=== PATIENT | male | born 1960 | race African-American/Black ===

== ENCOUNTER 2020-10-28 08:53 | Emergency (ER) | payer SELFPAY ==
[~2020-10-28] VITALS: Ht 193 cm; Wt 100.0 kg
[2020-10-28 09:00] VITALS: BP 169/89
--- NOTE | 2020-10-28 10:01 | ED.ADGEN ---
Past Medical History Past Medical History: No Pertinent History Past Surgical History: No Surgical History Smoking Status: Current Every Day Smoker Additional Information: "I VAPE." Alcohol Use: None Drug Use: None General Adult EDM: Chief Complaint: KNEE INJURY HPI: HPI: Patient is a 60 year old AA male who presents emergency department with complaints of left lateral knee pain for the last 2 weeks. Patient denies any recent injury or fall. He states that he got out of bed 2 weeks ago and noticed that his knee was hurting. Since then he has developed pain that shoots up to his left hip. Patient denies any erythema or warmth of his left knee, he states that there has been some swelling. He denies any numbness, tingling, or decreased sensation of the affected extremity. Patient denies any fever, cough, shortness of breath, body aches, fatigue, dysuria, increased urinary frequency, abdominal pain, nausea, vomiting, or diarrhea. He currently rates the pain a 7 out of 10 on the pain scale at rest, the pain increases to a 10 with movement and weightbearing. Patient reports that he has been taking aspirin with little relief of his symptoms. Review of Systems: Review of Systems: Complete ROS is negative unless otherwise noted in HPI. Allergies: Allergies: Allergies Coded Allergies Type Severity Reaction Last Updated Verified No Known Drug Allergies 10/28/20 No Physical Exam: PE: See Above Constitutional: Well developed, well nourished, no acute distress, non-toxic appearance. [] HENT: Normocephalic, atraumatic, bilateral external ears normal, oropharynx moist, no oral exudates, nose normal. [] Eyes: PERRLA, EOMI, conjunctiva normal, no discharge. [] Neck: Normal range of motion, no tenderness, supple, no stridor. [] Cardiovascular:Heart rate regular rhythm, no murmur [] Lungs & Thorax: Bilateral breath sounds clear to auscultation [] Skin: Warm, dry, no erythema, no rash. [] Back: No tenderness, no CVA tenderness. [] Extremities: L knee: lateral TTP without obvious deformity or crepitus, 1+ edema, sensation intact, No tenderness, no cyanosis, no clubbing, ROM intact, no edema. [] Neurologic: Alert and oriented X 3, normal motor function, normal sensory function, no focal deficits noted. [] Psychologic: Affect normal, judgement normal, mood normal. [] Current Patient Data: Vital Signs: Vital Signs Date Time Temp Pulse Resp B/P (MAP) Pulse Ox O2 Delivery O2 Flow Rate FiO2 10/28/20 09:00 98.7 48 16 169/89 98 Room Air 98.7 EKG: EKG: [] Heart Score: C/O Chest Pain: No Radiology/Procedures: Radiology/Procedures: PROCEDURE: KNEE LEFT 3V KNEE 3 VIEWS LEFT Clinical Indication: Reason: lateral L knee pain x 2 weeks / Comparison: None. Findings: There is no acute fracture or dislocation. There are small marginal osteophytes of all 3 compartments. There is moderate lateral and patellofemoral compartment narrowing. The mineralization appears normal. The patella is in anatomic position. No soft tissue swelling is appreciated radiographically. There is small joint effusion. No fat fluid level is seen. IMPRESSION: 1. No acute fracture. 2. Moderate arthropathy. 3. Small joint effusion. Electronically signed by: Navi Springer MD (10/28/2020 11:01 AM) [id number] [] Course & Med Decision Making: Course & Med Decision Making Pertinent Labs and Imaging studies reviewed. (See chart for details) [] Dragon Disclaimer: Dragon Disclaimer: This electronic medical record was generated, in whole or in part, using a voice recognition dictation system. Departure Departure Impression: Primary Impression: Acute pain of left knee Disposition: 01 HOME / SELF CARE / HOMELESS Condition: STABLE Referrals: NO PCP (PCP) ALYSIA KING DO Patient Instructions: Knee Pain, [id number] Additional Instructions: Fill prescription(s) and use as directed. Recommend application of ice, elevation, and rest of affected extremity. I recommend purchasing a compression knee sleeve to help with pain relief. Follow-up with Dr. King for further treatment. Return to the ER if your symptoms worsen or fever develops. Scripts Meloxicam (MELOXICAM) 15 Mg Tablet 15 MG PO DAILY for 14 Days, #14 TAB 0 Refills Prov: DEJAH FONSECA APRN 10/28/20 DEJAH FONSECA [employer] Oct 28, 2020 10:01
--- NOTE | 2020-10-28 11:03 | RAD ---
KNEE 3 VIEWS LEFT Clinical Indication: Reason: lateral L knee pain x 2 weeks / Comparison: None. Findings: There is no acute fracture or dislocation. There are small marginal osteophytes of all 3 compartments . There is moderate lateral and patellofemoral compartment narrowing. The mineralization appears norm al. The patella is in anatomic position. No soft tissue swelling is appreciated radiographically. The re is small joint effusion. No fat fluid level is seen. IMPRESSION: 1. No acute fracture. 2. Moderate arthropathy. 3. Small joint effusion. Electronically signed by: Navi Springer MD (10/28/2020 11:01 AM) [id number]
[2020-10-28] MEDS ORDERED: MELO15TA23 PO (11:27)
== END 2020-10-28 11:35 | disposition home or self-care (01) ==
LOC: ER 08:53
DX: M25.562 Pain in left knee (principal); F17.200 Nicotine dependence, unspecified, uncomplicated
CPT/HCPCS: 73562; 99283